=== PATIENT | female | born 1945 | race Caucasian/White ===

== ENCOUNTER 2018-04-10 04:59 | Inpatient (IN) ==
--- NOTE | 2018-03-30 16:08 | PAT Medication Instructions ---
Medication Instructions Date of Service March 30, 2018 Home Medications amlodipine 5 mg PO QAM ascorbic acid (vitamin C) [Vitamin 500 mg PO DAILY aspirin [Aspir-81] 81 mg PO DAILY atorvastatin 10 mg PO HS calcium carbonate-vitamin D3 1 tab PO QAM cyanocobalamin (vitamin B-12) 1,000 mcg PO DAILY flaxseed oil 1,000 mg PO QAM furosemide 20 mg PO QAM 03/28/18 ycyy-ehblg-[id number]-smn-jws-uvqs-st 1 tab PO DAILY ibuprofen 400 mg PO UD PRN peg 400-propylene glycol [Systane 1 dose UD PRN potassium chloride 10 meq PO QAM psyllium husk [Metamucil] 1 tsp PO DAILY ranitidine HCl 300 mg PO HS ASK your surgeon for instructions ibuprofen 400 mg PO UD PRN STOP taking 2 weeks before surgery (or as soon as possible if surgery is within 2 weeks) flaxseed oil 1,000 mg PO QAM pzkc-lrjhk-[id number]-dvt-rgr-tmra-st 1 tab PO DAILY DO NOT take the morning of surgery ascorbic acid (vitamin C) [Vitamin 500 mg PO DAILY calcium carbonate-vitamin D3 1 tab PO QAM cyanocobalamin (vitamin B-12) 1,000 mcg PO DAILY furosemide 20 mg PO QAM potassium chloride 10 meq PO QAM psyllium husk [Metamucil] 1 tsp PO DAILY Take morning of surgery With a small sip of water, OTHERWISE NOTHING TO EAT OR DRINK AFTER MIDNIGHT: amlodipine 5 mg PO QAM aspirin [Aspir-81] 81 mg PO DAILY peg 400-propylene glycol [Systane 1 dose UD PRN (if needed) Take evening before surgery atorvastatin 10 mg PO HS peg 400-propylene glycol [Systane 1 dose UD PRN (if needed) ranitidine HCl 300 mg PO HS Other Notes If you have any questions please call us at [phone] or [phone] or [phone] or [phone]
--- NOTE | 2018-04-02 09:27 | Anesthesiology Consultation ---
Date of Service April 02, 2018 Assessment & Plan (1) Encounter for pre-operative examination: Chart Review Chart Review: Acceptable Risk for Surgery and Patient seen in Pre Admission Testing Teaching & Discussion Pre-Anesthesia Teaching/Discussion Notes: Instructed NPO after midnight before surgery,except medications with 15 cc of water. Medication instructions provided according to the PAT guidelines. History Surgery Operation Date: 04/10/18 12:30 Proposed Procedures p Right Total Knee Replacement - Elder Valladares MD Height/Weight Height: 4 ft 11 in Weight: 77.3 kg Allergies Allergy/AdvReac Type Severity Reaction Status Date / Time Iodinated Contrast- Oral and Allergy Intermediate HIVES Verified 03/28/18 13:47 IV Dye Medications Home Medications Medication Instructions Recorded Confirmed Last Taken amlodipine 5 mg PO QAM 03/28/18 03/28/18 Unknown ascorbic acid (vitamin C) [Vitamin 500 mg PO DAILY 03/28/18 03/28/18 Unknown C] aspirin [Aspir-81] 81 mg PO DAILY 03/28/18 03/28/18 Unknown atorvastatin 10 mg PO HS 03/28/18 03/28/18 Unknown calcium carbonate-vitamin D3 1 tab PO QAM 03/28/18 03/28/18 Unknown [Calcium 600 + D(3)] cyanocobalamin (vitamin B-12) 1,000 mcg PO DAILY 03/28/18 03/28/18 Unknown [Vitamin B-12] flaxseed oil 1,000 mg PO QAM 03/28/18 03/28/18 Unknown furosemide 20 mg PO QAM 03/28/18 03/28/18 Unknown hzhz-gdtpa-yq8-osl-afs-abkd-st 1 tab PO DAILY 03/28/18 03/28/18 Unknown [Glucosamine Chondroitin PLUS] ibuprofen 400 mg PO UD PRN 03/28/18 03/28/18 Unknown peg 400-propylene glycol [Systane 1 dose UD PRN 03/28/18 03/28/18 Unknown Gel] potassium chloride 10 meq PO QAM 03/28/18 03/28/18 Unknown psyllium husk [Metamucil] 1 tsp PO DAILY 03/28/18 03/28/18 Unknown ranitidine HCl 300 mg PO HS 03/28/18 03/28/18 Unknown Past Medical History Medical History GERD (gastroesophageal reflux disease) RARE History of skin cancer Hyperlipidemia Hypertension Lymphedema LLE; WEARS COMPRESSION STOCKING Obesity Osteoarthritis Prediabetes Past Family History Family History Father Family history of lung cancer Mother Family history of leukemia Past Surgical History Surgical History History of colonoscopy History of endoscopy History of hemorrhoidectomy History of hysterectomy History of vascular surgery RLE SAPHENOUS VEIN STRIPPING Past Anesthesia History No Hx of Anesthesia Complications (EXCEPT WITH PONV) and No Family Hx of Anesthesia Complications History of PONV Yes Motion Sickness Screening History of Motion Sickness: No Social History Smoking Status: Former smoker Do You Dip or Chew Tobacco: No Smoking End Date: QUIT 30+ YEARS AGO Hx Alcohol Use: Yes Alcohol type: wine alcohol intake frequency: a few times a month Hx Substance Use: No substance use type: does not use Exercise / Class Metabolic Activity II 4-5 Yardwork/Stairs/Walk up hill Review of Systems Patient denies chest pain, shortness of breath, dyspnea on exertion, cough, wheezing, palpitations. Physical Exam Vital Signs VITALS BP 128/81 P 97 TEMP 97.9 SP02 99%RA RESP 18 PHYSICAL Full neck and c-spine range of motion. Full TMJ range of motion. TMD 3 finger breaths Mallampati Score 2 Dentition: intact, crowns several on molars Lungs: clear throughout to auscultation Cardiac: regular rate and rhythm, I/ systolic murmur Spine: normal Carotid arteries: negative bruit Extremities: non-pitting LLE edema (wearing compression socks) Testing Electrocardiogram Date: 04/02/18 NSR at 80bpm. Chest X-Ray Date: 04/02/18 Findings: + NAD Stress Test Date: 01/20/15 Type: exercise Stress ECHO negative for inducible ischemia. Mild equivocal EKG changes. Mild AR. LVEF 60-64%. 7.0 METS. 91% MPHR. Laboratory Results 04/02/18 09:39 04/02/18 09:39 Blood Type A Positive 04/02/18 09:39 Antibody Screen NEGATIVE 04/02/18 09:39 PT 10.2 Seconds (9.0-12.0) 04/02/18 09:39 INR 1.0 (0.9-1.1) 04/02/18 09:39 APTT 28.7 Seconds (21.0-31.0) 04/02/18 09:39 Hemoglobin A1c 6.1 % (4.5-5.6) H 04/02/18 09:39
[2018-04-02 10:35] LABS: Basophils # (auto) 0.02 K/uL (0-0.2); Basophils % (auto) 0.2 %; Eosinophils # (auto) 0.02 K/uL (0-0.5); Eosinophils % (auto) 0.2 %; Hematocrit (blood only) 43.3 % (37-47); Hemoglobin 14.4 g/dL (12.0-16.0); Immature Granulocytes # (auto) 0.02 K/uL (0.00-0.02); Immature Granulocytes % (auto) 0.2 %; Lymphocytes # (auto) 1.61 K/uL (1.2-3.4); Lymphocytes % (auto) 18.3 %; Mean Corpuscular Hgb Conc 33.3 g/dL (32-36); Mean Platelet Volume 10.2 fL (7.4-10.4); Monocytes # (auto) 0.52 K/uL (0.11-0.59); Monocytes % (auto) 5.9 %; Neutrophils # (auto) 6.61 K/uL (1.4-6.5); Neutrophils % (auto) 75.2 %; Platelet Count 392 K/uL (130-400); RDW Coefficient of Variation 13.2 % (11.5-14.5); RDW Standard Deviation 43.6 fL (36.4-46.3); Red Blood Count 4.81 M/uL (4.2-5.4)
--- NOTE | 2018-04-02 10:39 | XRay Report ---
XR chest Pre-admission PA/Lat HISTORY: Preop. COMPARISON: Chest 11/28/2011. FINDINGS: The lungs are clear. Cardiac silhouette is normal in size. No pleural effusions. No pneumot horax. IMPRESSION: No acute process. Electronically signed by: Hudson Lawton M.D. 04/02/2018 10:37 AM
[2018-04-02 10:41] LABS: BUN Creatinine Ratio 12.2 (10-20); Calcium 9.2 mg/dl (8.5-10.1); Creatinine Clr Calc Pharmacy 64.2 ml/min; Est GFR (African American) 99.6; Potassium 3.9 mmol/L (3.5-5.1)
[2018-04-02 10:49] LABS: Partial Thromboplastin Ratio 1.1; Partial Thromboplastin Time 28.7 Seconds (21.0-31.0); Prothrombin Time 10.2 Seconds (9.0-12.0)
[2018-04-02 10:56] LABS: Estimated Average Glucose 128 mg/dl; Hemoglobin A1C 6.1 % (4.5-5.6)
--- NOTE | 2018-04-05 22:16 | History and Physical Report ---
DATE OF ADMISSION: 04/10/2018 CHIEF COMPLAINT: Persistent right knee pain, discomfort and instability. HISTORY OF PRESENT ILLNESS: The patient is a 72-year-old female who I had been following for quite some time for right knee DJD. She continues to be bothered by progressive increasing right knee pain and discomfort. The shots have become less successful and she has gotten to the point, where she is having even trouble walking any significant distance. Her had recently from a spine infection. She is struggling to dealing with this and living an independent lifestyle. Her knee feels unstable. It hurts with every step. She has nighttime pain. She now likes to proceed with surgical treatment. PAST MEDICAL HISTORY: 1. Hypertension. 2. Prediabetes with an A1c of 6.1. 3. Low back pain. 4. Gastroesophageal reflux disease. 5. Mild obesity with BMI of 35. PAST SURGICAL HISTORY: Includes vein removal from right leg. ALLERGIES: IVP DYE. CURRENT MEDICINES: 1. Tramadol. 1. Ranitidine. 2. Lasix. 3. Norvasc. 4. Lipitor. 5. Potassium. 6. Aspirin 81 mg a day. 7. Metamucil. 8. Glucosamine. 9. Vitamin C. 10. Flaxseed. 11. Vitamin B12. SOCIAL HISTORY: A 72-year-old female. She is a . Lives by herself. Does not smoke. One drink per week. FAMILY HISTORY: Noncontributory. REVIEW OF SYSTEMS: Significant for prediabetes. Denies any chest pain or shortness of breath. No history of DVT or PE. PHYSICAL EXAMINATION: GENERAL: A healthy, pleasant middle-aged female who looks to be in pretty good health. HEENT: Benign. NECK: Supple. No lymphadenopathy. LUNGS: Clear to auscultation. HEART: Regular rate and rhythm. ABDOMEN: Soft, nontender, nondistended. EXTREMITIES: Grossly neurovascularly intact except as follows: Examination of the right leg reveals patient ambulates independently. She limps on the right side. She has got valgus alignment to her knee, which is worse with weightbearing. Range of motion is 10 degrees show full extension about 120 degrees of flexion. There is no instability. No pain with hip motion. X-RAYS: X-ray of the right knee reviewed. It shows advanced right knee lateral compartment DJD. She has complete loss of her lateral joint space. She has subchondral sclerosis. Looks like she has got some MCL laxity. Diffuse osteopenia. ASSESSMENT: A 72-year-old female with advanced right knee lateral compartment degenerative joint disease, unresponsive to conservative care. She now likes to pursue with surgical treatment. PLAN: We will take her to the operating room and do right total knee replacement. The risks and benefits of this procedure were explained to the patient including but not limited to DVT, PE, , infection, neurological injury, vascular injury, bleeding problem, pain, limited range of motion, stiffness, failure to relieve symptoms, incomplete relief of symptoms, need for further surgery in the future, fracture, leg length inequality, nerve palsy, etc. The patient understands and desires to proceed. Informed consent was obtained. Her medical doctor is Dr. Subramanian and we can have the [facility] follow her in the hospital if needed. Her hemoglobin A1c is pretty good, but will use sliding scale insulin coverage in the hospital. We are going to need to have a constrained insert available due to her valgus laxity. As far as discharge plans, she is hoping to be discharged to inpatient care of some sort as she lives by herself. We will need some assistance.
[2018-04-10] MEDS: LR 500ML BOLUS, THEN 15ML/HR IV SCH ×2 (05:56→09:22)
[2018-04-10] MEDS ORDERED: CEFAZOLIN 2000MG 2,000 MG/15 ML SYR IV SCH (06:00)
[2018-04-10] MEDS ORDERED: METOCLOPRAMIDE HCL 10 MG TABLET PO SCH (06:00)
[2018-04-10] MEDS ORDERED: LACTATED RINGER'S 1,000 ML IV SCH (06:00)
[2018-04-10] MEDS ORDERED: FAMOTIDINE 20 MG TAB PO SCH (06:00)
[2018-04-10] MEDS ORDERED: BUPIVACAINE LIPOSOME/PF 266 MG, BUPIVACAINE/EPINEPHRINE 50 ML, SODIUM CHLORIDE 0.9% 30 ... INFIL SCH (06:00)
[2018-04-10] MEDS ORDERED: ACETAMINOPHEN 500 MG TAB PO SCH (06:00)
[2018-04-10] MEDS ORDERED: GABAPENTIN 300 MG PO SCH (06:00)
[2018-04-10] MEDS ORDERED: TRANEXAMIC ACID 1,000 MG **IV Intra-op IV SCH (06:30)
[2018-04-10] MEDS ORDERED: BUPIVACAINE LIPOSOME 1.3% 266 MG/20 ML VIAL ONE (06:34)
[2018-04-10] MEDS ORDERED: BACITRACIN INJ 50,000 UNIT VIAL ONE (06:34)
[2018-04-10] MEDS ORDERED: EPINEPHrine INJ 1 MG/ML AMP ONE ×2 (06:34→06:35)
[2018-04-10] MEDS ORDERED: SODIUM CHLORIDE 0.9% PF 50 ML VIAL ONE (06:34)
[2018-04-10] MEDS ORDERED: BUPIVACAINE 0.5 % 5 MG/1 ML PF 10ML VIAL ONE (06:34)
[2018-04-10] MEDS ORDERED: BUPIVACAINE 0.25% 30 ML VIAL ONE (06:34)
[2018-04-10] MEDS ORDERED: ROPIVACAINE 0.5% 5 MG/ML 30 ML VIAL ONE (06:35)
[2018-04-10] MEDS ORDERED: MIDAZOLAM HCL 1 MG/ML 2ML VIAL ONE ×3 (06:47→06:50)
[2018-04-10] MEDS ORDERED: fentaNYL citrate 100 MCG/2 ML VIAL ONE (06:47)
[2018-04-10] MEDS ORDERED: MoRPHine SULFATE PF 1 MG/ML 10 ML AMP/VIAL ONE (06:48)
--- NOTE | 2018-04-10 06:51 | History & Physical Bridge Note ---
Date of Service April 10, 2018 History & Physical Bridge Note I have examined the patient, reviewed the History & Physical and in the interval since the performance of the History & Physical I have noted the following changes of clinical significance: no changes noted
[2018-04-10] MEDS ORDERED: PROPOFOL IV EMULSION 10 MG/ML 20 ML VIAL IV ONE ×2 (07:15→10:09)
[2018-04-10] MEDS ORDERED: PHENYLEPHRINE 100MCG/ML 5ML SYR ONE (07:18)
--- NOTE | 2018-04-10 08:41 | Post Operative Brief Note ---
Immediate Post Op Note v1 Date of Surgery April 10, 2018 Pre & Post Diagnosis Operation Date: 04/10/18 07:00 Pre-Op Diagnosis: Right Knee Advanced Degenerative Joint Disease Post-Op Diagnosis: Right Knee Advanced Degenerative Joint Disease Procedure Operation Date: 04/10/18 07:00 Actual Procedures p Right Total Knee Arthroplasty(Right) - Elder Valladares MD Surgeon Elder Valladares MD Pharmacometrician Leonarda, PAC Estimated Blood Loss 50 Findings Consistent with Post-Op Diagnosis Fluids 2000 cc Specimens Right Knee Drains Oneill Catheter (A 16 Kinyarwanda oneill catheter was inserted by DELORES Siddiqui, without difficulty, clear yellow urine obtained, output to be monitored by Anesthesia.) Anesthesia Type Spinal MAC Complications none Disposition Accompanied Patient To Recovery: No Disposition: Recovery Room
[2018-04-10] MEDS ORDERED: ePHEDrine sulfate 50 MG/ML AMP IV PRN (09:08)
[2018-04-10] MEDS ORDERED: ATROPINE SULFATE 0.1 MG/ML 10ML SYR IV PRN (09:08)
--- NOTE | 2018-04-10 09:13 | Anesthesiology Progress Note ---
Date of Service April 10, 2018 Anesthesia Post Procedure Vital Signs Vital Signs: Temp Pulse Pulse Resp BP Pulse Ox 04/10/18 09:05 78 17 105/57 L 98 04/10/18 08:55 83 19 104/52 L 98 04/10/18 08:46 36.8 C 88 15 108/54 L 98 04/10/18 05:52 36.9 C 83 20 140/69 100 Pain Intensity Right Knee: Pain Intensity: 0 Notes Mental Status: alert / awake / arousable Patient Amnestic to Procedure: Yes Nausea / Vomiting: adequately controlled Pain: adequately controlled Airway Patency, RR, SpO2: stable & adequate BP & HR: stable & adequate Hydration State: stable & adequate Neuraxial Anesthesia: was administered and sensory block is resolving Anesthetic Complications: no major complications apparent
--- NOTE | 2018-04-10 09:29 | XRay Report ---
XR knee RT 2V routine CLINICAL HISTORY: Surgical Post Op COMPARISON: None. DISCUSSION: Anatomic alignment post total right knee arthroplasty. Good contact between prosthetic an d underlying bone. Expected postoperative soft tissue change. IMPRESSION: Anatomic alignment post total right knee arthroplasty. The above report was generated using voice recognition software. It may contain grammatical, syntax or spelling errors. Electronically signed by: Huy George M.D. 04/10/2018 9:28 AM
[2018-04-10] MEDS ORDERED: ALUMINUM/MAGNESIUM SUSP 30 ML UDC PO PRN (09:51)
[2018-04-10] MEDS ORDERED: BISACODYL 10 MG SUPP PR PRN (09:51)
[2018-04-10] MEDS ORDERED: HYDROmorphone INJ 0.5 MG/0.5 ML SYR IV PRN (09:51)
[2018-04-10] MEDS ORDERED: DEXTROSE 50% 50 ML SYRINGE IV PRN (09:51)
[2018-04-10] MEDS ORDERED: NON-FORMULARY MEDICATION (Flaxseed Oil [Flaxseed Oil] 1,000 MG) PO SCH (09:51)
[2018-04-10] MEDS ORDERED: PHARMACY GLYCEMIC MGMT CONSULT STA (09:51)
[2018-04-10] MEDS ORDERED: CARBOHYDRATES FOR HYPOGLYCEMIA PO PRN (09:51)
[2018-04-10] MEDS ORDERED: NALOXONE HCL 0.4 MG/1 ML VIAL/CARP IV PRN (09:51)
[2018-04-10] MEDS ORDERED: MAGNESIUM HYDROXIDE SUSP 30 ML UDC PO PRN (09:51)
[2018-04-10] MEDS ORDERED: GLUCOSE 40% GEL 15 GM TUBE PO PRN (09:51)
[2018-04-10] MEDS ORDERED: SODIUM CHLORIDE 0.9% 1000ML 1,000 ML IV SCH (09:51)
[2018-04-10] MEDS ORDERED: GLUCOSE 10 TABS/TUBE PO PRN (09:51)
[2018-04-10] MEDS ORDERED: GLUCAGON FOR INJ 1 MG VIAL SQ PRN (09:51)
[2018-04-10] MEDS ORDERED: METOCLOPRAMIDE HCL INJ 5 MG/ML 2 ML VIAL IV PRN (09:51)
[2018-04-10] MEDS ORDERED: ASCORBIC ACID 500 MG TAB PO SCH (09:51)
[2018-04-10] MEDS ORDERED: PHARMACY GLYCEMIC MGMT CONSULT PRN (10:31)
[2018-04-10] MEDS ORDERED: ARTIFICIAL TEARS OP OINT 3.5 GM TUBE OP PRN (10:57)
--- NOTE | 2018-04-10 11:04 | Operative Report ---
DATE OF OPERATION: 04/10/2018 SURGEON: Elder Valladares MD CHIEF OF PARTY: DELORES Bush PREOPERATIVE DIAGNOSIS: Right knee degenerative joint disease. POSTOPERATIVE DIAGNOSIS: Right knee degenerative joint disease. PROCEDURE PERFORMED: Right cemented posterior stabilized total knee arthroplasty. COMPLICATIONS: None. ESTIMATED BLOOD LOSS: 50 mL. FLUID REPLACEMENT: 2000 mL crystalloid fluid replacement. TOURNIQUET TIME: 55 minutes at 300 mmHg. ANESTHESIA: Spinal with adductor canal block. DRAINS: None. SPECIMENS: Right knee sent for pathology. OPERATIVE INDICATIONS: The patient is a 72-year-old female who has had a very long history of bilateral knee pain and discomfort, right side quite a bit worse than the left. She has been through extensive conservative treatment over the years, which has become less successful. She had a significant valgus deformity to her knee and advanced lateral compartment arthritis. She elected to proceed with surgical treatment. OPERATIVE FINDINGS: Operative findings revealed advanced right knee lateral compartment DJD. She had extensive grade 4 cqes-wi-pxkr disease and eburnation of the lateral femoral condyle and lateral tibial plateau. She had a large knee joint effusion. She had some focal grade 4 changes in the patellofemoral joint to the medial compartment that was pretty well preserved. She had diffuse osteopenia. OPERATIVE IMPLANTS: Operative implants consisted of: 1. A Biomet Vanguard size 62.5 right posterior stabilized femoral component. 2. A Biomet size 67 tibial tray. 3. A 10 mm posterior stabilized polyethylene insert. 4. A 28 x 8 all poly patella. OPERATIVE PROCEDURE: The patient was taken to the operating room, identified and placed on the operative table in supine position. All contact areas were appropriately padded. IV antibiotics were provided by anesthesia team. A spinal anesthetic and adductor canal block had been provided in the holding area. Nunez catheter was placed in sterile fashion. Right thigh tourniquet was then placed and the right lower extremity was then prepped and draped in usual sterile fashion. The right leg was elevated and exsanguinated with Esmarch and tourniquet was placed at 300 mmHg. An anterior approach of the right knee was then performed through a longitudinal incision centered over the patella. Sharp dissection was carried through the subcutaneous tissues down to the level of the extensor mechanism. A medial parapatellar arthrotomy incision was made. Some subperiosteal dissection was carried out medially. The fat pad was resected from beneath the patellar tendon. The lateral patellofemoral ligament was released. The patella was subluxated laterally and the knee was flexed. The osteophytes were taken off the distal femur. The ACL and PCL were released from the distal femur and the tibia subluxated anteriorly. The external tibial alignment jig was then placed in the anterior face of the tibia and adjusted 14 mm medially. Proximal tibial cut was made to remove about 3-4 mm of bone from the medial side. The tibia was sized to a size 67. Attention was then drawn to the femur. The distal femur was entered with a sharp drill bit. Intramedullary canal was suctioned. A right 5-degree valgus cutting guide was placed. Distal femoral cutting block was pinned in place. Distal femoral cut was made to take an additional 3 mm of bone off the distal femur. The femur was sized to a size 62.5. We did downsize this slightly. I then brought the knee out into extension. There was no lateral release needed. The AP cutting block was then pinned parallel to the epicondylar axis, which was 4 degrees of external rotation. The anterior cut, anterior chamfer, posterior cut, posterior chamfer cuts were made. Box cutting guide was placed and adjusted slightly lateral and the box cut was made. The knee was flexed. The remnants of the medial and lateral menisci were excised. The osteophytes were taken off the posterior aspect of the femur. I did have to release the popliteus in order to equalize the flexion space. A trial femoral component was placed. Tibial tray was pinned in maximum external rotation and drill and stem punch were used to create defect in proximal tibia for the tibial tray. The knee was then trialed and the 10 mm insert fit most appropriately. Attention was then drawn to the patella. Mercer was cleaned of all soft tissues. Patella thickness measured 21 mm in thickness, it was cut down to 12. It was sized to a size 28 patella. Lug holes were drilled for a 28 patella. Lateral osteophyte was removed. Patella button was placed. Knee was taken through range of motion and the patella tracked nicely with no thumbs test. Attention was then drawn toward placement of the permanent components. All trial components were removed. Bone plug was placed in the distal femur to limit blood loss. A double batch of Palacos G cement was mixed. A Biomet Vanguard size 62.5 right posterior stabilized femoral component, size 67 tibial tray, 10 mm posterior stabilized polyethylene insert, 28 x 8 all poly patella then cemented in place. Knee was brought down to full extension until cement hardened. Final cement check was then performed. Pericapsular tissues were injected with a total of 100 mL combination of 20 mL of Exparel, 30 mL of normal saline, 50 mL of 0.25% Marcaine with epinephrine. The patient did receive 1 gram of tranexamic acid. The tourniquet was then let down for a tourniquet time of 55 minutes. Hemostasis was assured with use of electrocautery. The extensor mechanism was then closed with a combination of #1 PDS suture and #1 Vicryl suture in a [id number]-sx-spgct fashion. Extensor mechanism was checked and found to be intact. Subcutaneous tissues were then closed with #2 Dexon suture in a buried interrupted fashion. Skin was closed with skin jaison. Leg was then cleaned, dried and a sterile dressing of Xeroform, 4 x 4's, sterile cast padding and Anuel bandage were applied. The patient then transferred to the recovery room in stable condition. The patient tolerated the procedure well with no complications. All needle and sponge counts were correct at the end of the operation. I attest to the content of the Intraoperative Record and any orders documented therein. Any exception s are noted below.
[2018-04-10] MEDS: DOCUSATE SODIUM 100 MG CAP PO SCH ×2 (11:35→21:40)
[2018-04-10] MEDS: CALCIUM 600MG + VIT D 400 IU TAB PO SCH (11:35)
[2018-04-10] MEDS: POTASSIUM CHLORIDE 10 MEQ TABCR PO SCH (11:36)
[2018-04-10] MEDS: MULTIVITAMIN TAB PO SCH (11:36)
[2018-04-10] MEDS: AMLODIPINE BESYLATE 5 MG TAB PO SCH (11:40)
[2018-04-10] MEDS: PSYLLIUM 58.6% POWDER PACKET PO SCH (11:42)
[2018-04-10] MEDS: FUROSEMIDE 20 MG TAB PO SCH (11:42)
[2018-04-10] MEDS: KETOROLAC TROMETHAMINE 15 MG/ML VIAL IV SCH ×3 (12:15→23:23)
[2018-04-10] MEDS: INSULIN ASPART 100 UNITS/ML 3 ML PEN SC SCH ×3 (12:48→21:42)
[2018-04-10] MEDS: CYANOCOBALAMIN 500 MCG TABLET (VITAMIN B-12) PO SCH (13:27)
[2018-04-10] MEDS: ACETAMINOPHEN 500 MG TAB PO SCH ×2 (13:28→21:40)
--- NOTE | 2018-04-10 13:46 | Pharmacy Report ---
Glycemic Control Consultation - Date of Service April 10, 2018 - Scope Scope: Glycemic Pharmacist consulted by Dr Valladares on 04/10/18 for glycemic control and to write orders per formerly [facility] inpatient glycemic control protocol - Objective Weight: 76.385 kg Accuchecks BSG (last 24hrs): 04/10/18 04/10/18 04/10/18 08:53 10:38 12:23 POC Glucose 129 H 116 H 141 H HbA1c: Hemoglobin A1c 6.1 % (4.5-5.6) H 04/02/18 09:39 - Recent Pertinent Medications Outpatient Anti-diabetic Regimen: * nil * A1c = 6.1 % 04/02/18 - Assessment & Plan Assessment & Plan: ASSESSMENT: * Ms. Soto is a 72yo F unknown to the pharmacy glycemic service. She is a pre-diabetic as evidenced by her A1C of 6.1%. She is s/p R TKA. She did not receive any steroids pre/steph- operatively. Minimal other risk factors to confer any insulin resistance. She is ordered a type 2 diabetes diet. PLAN FOR INPATIENT GLYCEMIC CONTROL: * Basal insulin * none ordered at this juncture * Bolus insulin * NovoLog per scale ACHS * Goal Range: Low 110 mg/dL - High 140 mg/dL * Correction Factor: 30 mg/dL/unit * Nutritional / Prandial insulin per carb ratio of 1 unit per 10 grams CHO consumed * Please note that the plan above was derived based on current level of insulin resistance and hospital stress. These recommendations are appropriate for inpatient admission only. Plan of care upon discharge will need to be reassessed to avoid potential outpatient hypo/hyperglycemia. Thank you.
[2018-04-10] MEDS ORDERED: TRANEXAMIC ACID 1,000 MG in 0.9 % SODIUM CHLORIDE 100 ML IV SCH (15:00)
[2018-04-10] MEDS: CEFAZOLIN 1000MG 1,000 MG/7.5 ML SYR IV SCH ×2 (16:38→23:23)
[2018-04-10] MEDS: FERROUS GLUCONATE 324 MG TAB PO SCH (19:12)
[2018-04-10] MEDS: ASCORBIC ACID 500 MG TAB PO SCH (19:12)
[2018-04-10] MEDS: SENNA 8.6 MG TAB PO SCH (21:40)
[2018-04-10] MEDS: ASPIRIN 81 MG ECTAB PO SCH (21:41)
[2018-04-10] MEDS: ATORVASTATIN 10 MG TAB PO SCH (21:41)
[2018-04-11] MEDS: ACETAMINOPHEN 500 MG TAB PO SCH ×3 (05:48→21:00)
[2018-04-11] MEDS: KETOROLAC TROMETHAMINE 15 MG/ML VIAL IV SCH ×4 (05:48→23:24)
[2018-04-11 06:09] LABS: Hematocrit (blood only) 37.1 % (37-47); Hemoglobin 12.7 g/dL (12.0-16.0); Mean Corpuscular Hgb Conc 34.2 g/dL (32-36); Mean Corpuscular Volume 88.5 fL (80-100); Mean Platelet Volume 10.1 fL (7.4-10.4); Platelet Count 310 K/uL (130-400); RDW Coefficient of Variation 13.3 % (11.5-14.5); RDW Standard Deviation 43.2 fL (36.4-46.3); Red Blood Count 4.19 M/uL (4.2-5.4); White Blood Count 10.75 K/uL (4.8-10.8)
[2018-04-11 06:41] LABS: BUN Creatinine Ratio 13.5 (10-20); Calcium 8.2 mg/dl (8.5-10.1); Creatinine Clr Calc Pharmacy 70.9 ml/min; Est GFR (African American) 103.1; Potassium 3.3 mmol/L (3.5-5.1)
--- NOTE | 2018-04-11 07:39 | Anesthesiology Progress Note ---
Date of Service April 11, 2018 Anesthesia Post Procedure Vital Signs Vital Signs: Temp Pulse Pulse Resp BP Pulse Ox 04/11/18 04:32 36.7 C 81 16 144/78 H 95 04/10/18 23:19 36.8 C 76 14 113/64 94 04/10/18 19:27 37.0 C 82 17 135/75 98 04/10/18 15:04 36.4 C L 70 22 136/72 98 04/10/18 12:37 80 16 111/66 100 04/10/18 11:35 75 16 113/66 100 04/10/18 10:35 82 16 117/71 100 04/10/18 09:55 36.4 C L 76 16 116/63 100 04/10/18 09:35 36.4 C L 76 16 110/64 99 04/10/18 09:15 36.8 C 76 20 112/55 L 97 04/10/18 09:05 78 17 105/57 L 98 04/10/18 08:55 83 19 104/52 L 98 04/10/18 08:46 36.8 C 88 15 108/54 L 98 Pain Intensity Right Knee: Pain Intensity: 0 Notes Mental Status: alert / awake / arousable and participated in evaluation Nausea / Vomiting: adequately controlled Pain: adequately controlled Airway Patency, RR, SpO2: stable & adequate BP & HR: stable & adequate Hydration State: stable & adequate
[2018-04-11] MEDS: TRAMADOL HCL 50 MG TABLET PO PRN ×2 (08:31→14:42)
[2018-04-11] MEDS: ONDANSETRON INJ 2 MG/ML 2 ML VIAL IV PRN ×2 (08:31→14:42)
[2018-04-11] MEDS: FERROUS GLUCONATE 324 MG TAB PO SCH ×2 (09:06→17:34)
[2018-04-11] MEDS: ASPIRIN 81 MG ECTAB PO SCH ×2 (09:07→20:55)
[2018-04-11] MEDS: DOCUSATE SODIUM 100 MG CAP PO SCH ×2 (09:07→20:58)
[2018-04-11] MEDS: ASCORBIC ACID 500 MG TAB PO SCH ×2 (09:07→17:33)
[2018-04-11] MEDS: CALCIUM 600MG + VIT D 400 IU TAB PO SCH (09:07)
[2018-04-11] MEDS: POTASSIUM CHLORIDE 10 MEQ TABCR PO SCH (09:08)
[2018-04-11] MEDS: FUROSEMIDE 20 MG TAB PO SCH (09:09)
[2018-04-11] MEDS: MULTIVITAMIN TAB PO SCH (09:09)
[2018-04-11] MEDS: PSYLLIUM 58.6% POWDER PACKET PO SCH (09:09)
[2018-04-11] MEDS: CYANOCOBALAMIN 500 MCG TABLET (VITAMIN B-12) PO SCH (09:10)
[2018-04-11] MEDS: AMLODIPINE BESYLATE 5 MG TAB PO SCH (09:10)
[2018-04-11] MEDS: INSULIN ASPART 100 UNITS/ML 3 ML PEN SC SCH ×4 (09:13→21:04)
[2018-04-11] MEDS ORDERED: POTASSIUM CHLORIDE 20 MEQ TABCR PO ONE (16:41)
--- NOTE | 2018-04-11 17:00 | Progress Note ---
DATE: 04/11/2018 SUBJECTIVE: A 72-year-old female postop day 1 from a right knee replacement. She is doing pretty well. Some pain with therapy but really not much pain in resting. No chest pain or shortness of breath. Not feeling dizzy or lightheaded. OBJECTIVE: VITAL SIGNS: Temperature 36.3. Vital signs stable. PHYSICAL EXAMINATION: GENERAL: Reveals a pleasant elderly female. She is sitting up in her bedside chair, looks comfortable. EXTREMITIES: Examination of the right leg reveals the dressing to be clean, dry and intact. She can dorsiflex and plantarflex her foot appropriately. She is neurologically intact. Brisk refill. LABORATORY DATA: Hemoglobin 12.7, hematocrit 37.1. Electrolytes are stable. Potassium is slightly low at 3.3. ASSESSMENT: A 72-year-old white female postoperative day 1 from right knee replacement, doing pretty well. Her pain is controlled. She is neurologically intact. A little hypokalemic and we will supplement her potassium. PLAN: 1. DVT prophylaxis including thigh-high TEDs, SCDs, and aspirin twice a day. 2. PT/OT. Weight bear as tolerated. Right total knee protocol. 3. Pain control, doing pretty well with current pain regimen. 4. Hypokalemia. We will supplement her potassium. 5. Disposition: She is hoping to be discharged to rehab. Social service is working on that.
[2018-04-11] MEDS: POTASSIUM CHLORIDE 10 MEQ TABCR PO ONE ×2 (17:31→20:58)
[2018-04-11] MEDS: SENNA 8.6 MG TAB PO SCH (20:59)
[2018-04-11] MEDS: ATORVASTATIN 10 MG TAB PO SCH (21:00)
[2018-04-12] MEDS: ACETAMINOPHEN 500 MG TAB PO SCH ×3 (05:29→21:14)
[2018-04-12] MEDS: KETOROLAC TROMETHAMINE 15 MG/ML VIAL IV SCH (05:29)
[2018-04-12] MEDS: CALCIUM 600MG + VIT D 400 IU TAB PO SCH (09:23)
[2018-04-12] MEDS: CYANOCOBALAMIN 500 MCG TABLET (VITAMIN B-12) PO SCH (09:23)
[2018-04-12] MEDS: FERROUS GLUCONATE 324 MG TAB PO SCH ×2 (09:24→17:51)
[2018-04-12] MEDS: DOCUSATE SODIUM 100 MG CAP PO SCH ×2 (09:24→21:14)
[2018-04-12] MEDS: ASPIRIN 81 MG ECTAB PO SCH ×2 (09:24→21:13)
[2018-04-12] MEDS: ASCORBIC ACID 500 MG TAB PO SCH ×2 (09:24→17:51)
[2018-04-12] MEDS: MULTIVITAMIN TAB PO SCH (09:25)
[2018-04-12] MEDS: POTASSIUM CHLORIDE 10 MEQ TABCR PO SCH (09:25)
[2018-04-12] MEDS: FUROSEMIDE 20 MG TAB PO SCH (09:25)
[2018-04-12] MEDS: PSYLLIUM 58.6% POWDER PACKET PO SCH (09:26)
[2018-04-12] MEDS: AMLODIPINE BESYLATE 5 MG TAB PO SCH (09:27)
[2018-04-12] MEDS: INSULIN ASPART 100 UNITS/ML 3 ML PEN SC SCH ×4 (09:29→21:17)
--- NOTE | 2018-04-12 13:14 | Pharmacy Report ---
Pharmacy Glycemic Short Note 2 - Date of Service April 12, 2018 - Glycemic Short BSG Results (Last 24 hours): 04/11/18 04/11/18 04/12/18 17:23 20:24 08:16 POC Glucose 121 H 131 H 121 H 04/12/18 12:03 POC Glucose 92 ASSESSMENT: Ms. Soto is a 72yo F unknown to the pharmacy glycemic service. She is a pre- diabetic as evidenced by her A1C of 6.1%. She is s/p R TKA. She did not receive any steroids pre/steph- operatively. Minimal other risk factors to confer any insulin resistance. She is ordered a type 2 diabetes diet 04/12: * Patient only requiring about 7 units total of insulin within the last 24 hours, no basal insulin necessary * Fasting BSG 121 mg/dL - will continue to hold basal * Mealtime BSGs yesterday all within goal - improved from 04/10; Lunchtime BSG today 92 mg/dL - concern for BSGs to decrease will loosen up CR PLAN FOR INPATIENT GLYCEMIC CONTROL: * Hold outpatient oral diabetes medications * Basal insulin * none - continue to hold * Bolus insulin - loosen * NovoLog per scale ACHS or Q6hrs while NPO * Goal Range: Low 110 mg/dL - High 140 mg/dL * Correction Factor: 30 mg/dL/unit * Nutritional / Prandial insulin per carb ratio of 1 unit per 12 grams CHO consumed
--- NOTE | 2018-04-12 20:35 | Progress Note ---
DATE: 04/12/2018 SUBJECTIVE: A 72-year-old female postop day 2 from right knee replacement. She is doing pretty well. Pain has been much less severe than what she expected. Therapy is going well. No chest pain or shortness of breath. Not feeling dizzy or lightheaded. OBJECTIVE: VITAL SIGNS: Temperature 36.7. Vital signs stable. PHYSICAL EXAMINATION: GENERAL: The patient is a pleasant elderly female placed in the bed and looks comfortable. EXTREMITIES: Examination of the right leg reveals the leg to be well aligned. Dressing is clean, dry and intact. She can dorsiflex and plantarflex her foot appropriately. She is neurologically intact. LABORATORY DATA: Potassium improved at 4.1. ASSESSMENT: A 72-year-old female postop day 2 from right knee replacement, doing pretty well. Pain is controlled. Potassium was supplemented and is now back to normal. Unfortunately, she has been denied rehabilitation and she is thinking about going home with some home health. PLAN: 1. DVT prophylaxis including thigh-high TEDs, SCDs, and aspirin twice daily. 2. PT/OT. She can weightbear as tolerated. Right total knee protocol. 3. Pain control. Doing reasonably well with current pain regimen. 4. Disposition: She has been denied rehabilitation. She will likely go home with some home health possibly tomorrow.
[2018-04-12] MEDS: SENNA 8.6 MG TAB PO SCH (21:13)
[2018-04-12] MEDS: ATORVASTATIN 10 MG TAB PO SCH (21:14)
[2018-04-13] MEDS: ACETAMINOPHEN 500 MG TAB PO SCH ×2 (05:30→13:36)
[2018-04-13] MEDS: AMLODIPINE BESYLATE 5 MG TAB PO SCH (08:35)
[2018-04-13] MEDS: CALCIUM 600MG + VIT D 400 IU TAB PO SCH (08:35)
[2018-04-13] MEDS: FERROUS GLUCONATE 324 MG TAB PO SCH (08:35)
[2018-04-13] MEDS: DOCUSATE SODIUM 100 MG CAP PO SCH (08:35)
[2018-04-13] MEDS: CYANOCOBALAMIN 500 MCG TABLET (VITAMIN B-12) PO SCH (08:36)
[2018-04-13] MEDS: POTASSIUM CHLORIDE 10 MEQ TABCR PO SCH (08:36)
[2018-04-13] MEDS: FUROSEMIDE 20 MG TAB PO SCH (08:36)
[2018-04-13] MEDS: PSYLLIUM 58.6% POWDER PACKET PO SCH (08:36)
[2018-04-13] MEDS: ASCORBIC ACID 500 MG TAB PO SCH (08:37)
[2018-04-13] MEDS: ASPIRIN 81 MG ECTAB PO SCH (08:37)
[2018-04-13] MEDS: MULTIVITAMIN TAB PO SCH (08:37)
[2018-04-13] MEDS: INSULIN ASPART 100 UNITS/ML 3 ML PEN SC SCH ×2 (08:39→13:22)
[2018-04-13] MEDS: TRAMADOL HCL 50 MG TABLET PO PRN (08:45)
--- NOTE | 2018-04-13 13:29 | Pharmacy Report ---
Pharmacy Glycemic Short Note 2 - Date of Service April 13, 2018 - Glycemic Short BSG Results (Last 24 hours): 04/12/18 04/12/18 04/13/18 17:13 20:43 08:19 POC Glucose 118 H 120 H 115 H 04/13/18 12:55 POC Glucose 76 ASSESSMENT: Ms. Soto is a 72yo F unknown to the pharmacy glycemic service. She is a pre- diabetic as evidenced by her A1C of 6.1%. She is s/p R TKA. She did not receive any steroids pre/steph- operatively. Minimal other risk factors to confer any insulin resistance. She is ordered a type 2 diabetes diet 3-1: * Patient received 7 units of insulin yesterday - no basal needed * All BSGs yesterday within range * Fasting BSG this am 115 mg/dL - however lunchtime BSG trending down to 76 mg/dL after only receiving 1 unit of insulin this morning - will hold carb coverage at this time and just use correctional if needed 04/12: * Patient only requiring about 7 units total of insulin within the last 24 hours, no basal insulin necessary * Fasting BSG 121 mg/dL - will continue to hold basal * Mealtime BSGs yesterday all within goal - improved from 04/10; Lunchtime BSG today 92 mg/dL - concern for BSGs to decrease will loosen up CR PLAN FOR INPATIENT GLYCEMIC CONTROL: * Hold outpatient oral diabetes medications * Basal insulin * none - continue to hold * Bolus insulin - hold CR * NovoLog per scale ACHS or Q6hrs while NPO * Goal Range: Low 110 mg/dL - High 140 mg/dL * Correction Factor: 30 mg/dL/unit * Nutritional / Prandial insulin per carb ratio of 1 unit per 0 grams CHO consumed - hold
--- NOTE | 2018-04-14 14:11 | Discharge Summary ---
Date of Service April 24, 2018 Discharge Data Consultations 04/10/18 09:51 Consult Case Management - Discharge Planning Routine Procedures Performed Operation Date: 04/10/18 07:00 Actual Procedures p Right Total Knee Arthroplasty(Right) - Elder Valladares MD
--- NOTE | 2018-04-22 22:28 | Discharge Summary ---
ADMITTING PHYSICIAN AND SURGEON: Elder Valladares MD ADMITTING DIAGNOSIS: Right knee degenerative joint disease. SURGERY PERFORMED: Right total knee arthroplasty. SECONDARY DIAGNOSES: Hypertension, prediabetes, low back pain, gastroesophageal reflux disease and mild obesity. CONSULTS: None obtained. HISTORY AND PHYSICAL EXAMINATION: Well documented in the patient's chart. HOSPITAL COURSE: The patient was admitted on 04/10/2018, underwent total knee arthroplasty, tolerated the procedure well without complications. She was transferred to the PACU postoperatively and later to the Orthopedic for further care. She was given Ancef for antibiotic prophylaxis, FRANCOIS stockings and sequential compression devices and aspirin for deep venous thrombosis prophylaxis. Hemoglobin, hematocrit and vital signs monitored during her hospital stay and remained stable. She did not require blood transfusions. There were no complications. By postoperative day 2, she was tolerating a diabetic diet. Pain was controlled with oral pain medicine. She was participating in physical therapy. On postoperative day 2, she was discharged home, set up with home health services. She was given printed discharge instructions including new prescriptions for extra strength Tylenol, aspirin and tramadol. Continue her home medications, continue physical therapy, weightbearing as tolerated, FRANCOIS stockings and follow up approximately 2 weeks postoperatively or sooner if there are any problems or concerns.
== END 2018-04-13 16:01 | disposition home health service (06) | DRG 470 ==
LOC: ASU 04:59 → 3E 09:40